=== PATIENT | female | born 1940 | race Caucasian/White ===

== ENCOUNTER 2017-05-15 11:01 | Emergency (ER) | payer OTHER ==
--- NOTE | 2017-05-15 11:18 | EDPHY ---
H & P HPI/ROS: This patient is brought in by private vehicle by her and pet crematory worker with history of a double dose of her morning medications inadvertently. Her gave her her morning dose of Namenda - 10mg, carbidopa levodopa 50mg and thyroxine 50mcg. 10 minutes later the pet crematory worker came in not realizing that the patient had already had her meds and repeated the same regimen of medications. This patient has a background history of advanced Parkinson's disease and dementia and is nonverbal at baseline. The ingestions of the medications were 1 hour prior to arrival and her has the impression that she has a bit more "spacey "than usual but no other significant changes were noted prior to arrival. ROS: Limited by patient's nonverbal status but per caretakers: Constitutional : No high fevers or chills HEENT: No complaints Pulmonary: No significant coughing recently. Cardiovascular: No pallor is noted GI: No nausea or vomiting Integumentary: No skin rash. Neuro: When inquired about the "spacey "behavior her notes that she has more of a roving gaze than usual this morning. However she does smile and engaged with her pet crematory worker here. 10 point ROS is otherwise negative. Source: Family, Other (Patient's and pet crematory worker provide history) - Personal History Tetanus Vaccine Date: 2010 - Medical/Surgical History Hx Asthma: No Hx Chronic Respiratory Disease: No Hx Diabetes: No Hx Cardiac Disease: No Hx Renal Disease: No Hx Cirrhosis: No Hx Alcoholism: No Hx HIV/AIDS: No Hx Splenectomy or Spleen Trauma: No Other PMH: DVT. alzheimers. osteopenia,parkinsons,hypothyroid. gb. ankle surg. DNR - Social History Smoking Status: Never smoked Alcohol Use: None Drug Use: None - Physical Exam Exam: Vital signs are normal with exception of borderline hypoxia on room air around 88-90% General Appearance: Elderly nonverbal female Alert, no distress. Eyes: Pupils equal and round no pallor or injection. ENT, Mouth: Mucous membranes moist. Respiratory: Slightly diminished at the bases but otherwise clear to auscultation. No rales or rhonchi appreciated. Cardiovascular: Regular rate and rhythm. Gastrointestinal: Abdomen is soft and nontender, no masses, bowel sounds normal. Neurological: Patient is alert with no focal deficits appreciated. She has rigidity in her extremities consistent with advanced Parkinson's. She initially has a blank stare but then does connect visually with her pet crematory worker and smile. No facial asymmetry is appreciated or gross cranial nerve deficits. Skin: Warm and dry, no rashes. Musculoskeletal: Neck is supple nontender. Extremities are symmetrical, full range of motion. Psychiatric: Flat affect. DIFFERENTIAL DIAGNOSIS: After history and physical exam differential diagnosis was considered for mild medication due to delirium, advanced Parkinson's, metabolic disarray, pneumonia, bronchitis, hypo ventilation Constitutional: Initial Vital Signs Temperature (C) 36.9 C 05/15/17 11:09 Heart Rate 156 H 05/15/17 11:09 Respiratory Rate 24 H 05/15/17 11:09 Blood Pressure 99/64 L 05/15/17 11:09 O2 Sat (%) 88 L 05/15/17 11:09 O2 Delivery Mode Room Air O2 (L/minute) 2 Allergies/Adverse Reactions: No Known Allergies Allergy (Verified 05/15/17 11:17) Home Medications: Medication Instructions Recorded Levothyroxine [Synthroid 50 mcg 50 mcg PO DAILY06 02/08/13 (RX)] Memantine HCl [Namenda 10 mg] 10 mg PO BID 02/08/13 Omeprazole [Prilosec 40 mg] 40 mg PO BIDAC 02/08/13 Warfarin Sodium 5 mg PO DAILY #30 tablet 11/09/15 Carbidopa 50 - 200 mg 12/19/15 Medical Decision Making - Diagnostics EKG Interpretation: 12 lead EKG performed at 11:22 a.m. indication mental status change, rule out dysrhythmia Sinus rhythm at 96 Intervals: Normal throughout [place]: P of 12, QRS of-9, T of 46degrees Overall assessment sinus rhythm nonspecific intraventricular conduction delay, tremor artifact-history of Parkinson's. ED Course/Re-evaluation: Patient remained stable a pleasant while here. A review of the actual dosages of medications she had in total today are still within therapeutic range. I do not think she will suffer significant toxicities results this and counseled her family regarding this. Review of her labs reveals normal CBC and chemistries. I counseled patient's regarding her lab tests. Her EKG had excessive artifact from her tremor but not think she is having the current cardiac episodes. With the patient had borderline O2 sats but I think this is from poor ventilatory effort and slouched position. Appreciate no clinical evidence to suggest lower respiratory infection at this time. - Data Points Laboratory Results: Laboratory Results 05/15/17 11:14 05/15/17 11:14 Medications Given: Discontinued Medications Aspirin (Aspirin) 324 mg PO EDNOW ONE Stop: 05/15/17 11:50 Last Admin: 05/15/17 11:55 Dose: Not Given Departure - Departure Disposition: Home, Routine, Self-Care Clinical Impression: Mental status change Condition: Good Additional Instructions: Diagnosis: Unintentional medication overdose Upon review, the actual mg of each drug congested distal within a therapeutic window. Mrs Senior is unlikely to develop any significant side effects or risk of ill health consequences of today's unintentional extra medication Also, her count and chemistries normal today. Plan: Hold evening dose of medications that were double dosed today and then resume normal medication dosing after. Return emergency department if she has any significant change in mental status or other concerning symptoms. Referrals: Candelario Larsen MD [Primary Care Provider] - As per Instructions
--- NOTE | 2017-05-15 11:25 | CPEKG ---
Heart Rate: 96 RR Interval: 625 P-R Interval: 130 QRSD Interval: 124 QT Interval: 384 QTC Interval: 486 P [place]: 12 QRS [place]: -9 T Wave [place]: 46 EKG Severity - ABNORMAL ECG - EKG Impression: Patient with artifact from tremor-history of Parkinson's EKG Impression: SINUS RHYTHM EKG Impression: PROBABLE LEFT ATRIAL ABNORMALITY EKG Impression: NONSPECIFIC INTRAVENTRICULAR CONDUCTION DELAY Electronically Signed By: Johann Solomon 15-May-2017 15:21:50
[2017-05-15] MEDS ORDERED: ASPIRIN 81 MG CHEWABLE TAB PO ONE (11:49)
[2017-05-15 11:51] VITALS: RESP 22
[2017-05-15 12:17] LABS: % IMMATURE GRANULYOCYTES 0.3 % (0.0-1.1); ABSOLUTE IMMATURE GRANULOCYTES 0.02 10^3/uL (0.00-0.10); ADD DIFF? NO; ADD MORPH? NO; ADD SCAN? NO; ATYPICAL LYMPHOCYTE FLAG 0 (0-99); FRAGMENT RBC FLAG 0 (0-99); HEMATOCRIT 40.9 % (38.0-47.0); HEMOGLOBIN 13.8 g/dL (12.6-16.3); LEFT SHIFT FLG 0 (0-99); LIPEMIA HEMOLYSIS FLAG 80 (0-99); MEAN CELL HEMOGLOBIN 31.9 pg (27.9-34.1); MEAN CELL HEMOGLOBIN CONCENTR. 33.7 g/dL (32.4-36.7); MEAN CELL VOLUME 94.7 fL (81.5-99.8); MEAN PLATELET VOLUME 10.4 fL (8.7-11.7); PLATELET CLUMPS FLAG 0 (0-99); PLATELET COUNT 264 10^3/uL (150-400); RED BLOOD CELL COUNT 4.32 10^6/uL (4.18-5.33); RED CELL DISTRIBUTION WIDTH 13.5 % (11.5-15.2)
[2017-05-15 12:24] LABS: ANION GAP 14 mEq/L (8-16); CALCIUM 9.3 mg/dL (8.5-10.4); CARBON DIOXIDE 23 mEq/l (22-31); CHLORIDE 106 mEq/L (97-110); CREATININE 0.7 mg/dL (0.6-1.0); GLOMERULAR FILTRATION RATE > 60; GLUCOSE 117 mg/dL (70-100); SODIUM 143 mEq/L (134-144)
[2017-05-15 13:06] VITALS: BP 90/54; PULSE 95; TEMP 98.2
[2017-05-15 13:33] VITALS: O2SAT 90
== END 2017-05-15 13:30 | disposition home or self-care (01) ==
LOC: CED 11:01
DX: R41.82 Altered mental status, unspecified (principal); G20 Parkinson's disease; Z79.01 Long term (current) use of anticoagulants
CPT/HCPCS: 80048-PO; 85025-PO